=== PATIENT | male | born 1990 | race African-American/Black ===

== ENCOUNTER 2016-12-23 07:31 | Emergency (ER) | payer OTHER ==
[~2016-12-23] VITALS: Ht 188 cm; Wt 56.4 kg
[~2016-12-23 07:31] MED LIST: ACCU-CHEK SMAR1 EACH MC; ASPIR-TRIN325 M1 PO; EASY TOUCH INS MC; INSULIN SYRING1 EA30 MC; LANTUS 10100 UNITS/ SC; Milk Of Magnesia,MOM PO; NOVOLOG 10100 UNITS/ SC; OxyCODONE PO; Senokot,Sennagen PO
[2016-12-23] MEDS ORDERED: DELTASONE20 M1 PO (08:08)
[2016-12-23] MEDS ORDERED: LIDODERM 5% P1 PATCH TD (08:08)
[2016-12-23] MEDS ORDERED: BACLOFEN10 MG PO (08:08)
[2016-12-23 08:35] VITALS: BP 122/76
== END 2016-12-23 08:36 | disposition home or self-care (01) ==
LOC: EME 07:31
DX: M54.5 Low back pain (principal); W10.9XXA Fall (on) (from) unspecified stairs and steps, initial encounter; Y92.008 Other place in unspecified non-institutional (private) residence as the place of occurrence of the external cause; E10.8 Type 1 diabetes mellitus with unspecified complications; J45.909 Unspecified asthma, uncomplicated; Z72.0 Tobacco use
CPT/HCPCS: 99281; 99284

== ENCOUNTER 2017-01-10 06:22 | Emergency (ER) | payer OTHER ==
[~2017-01-10] VITALS: Ht 188 cm; Wt 58.7 kg
[~2017-01-10 06:22] MED LIST changes: +BACLOFEN10 MG PO; +DELTASONE20 M1 PO; +LIDODERM 5% P1 PATCH TD
[2017-01-10 07:50] LABS: EOSINOPHIL (%) 4.8 % (0-5); EOSINOPHIL COUNT 0.2 K/uL (0-0.3); HEMATOCRIT 43.1 % (38.0-50.0); IMMATURE GRANULOCYTE (%) 0.2 % (0.0-0.7); INSTRUMENT ABS NEUTROPHIL CT 2.5 K/uL; LYMPHOCYTE COUNT 1.7 K/uL (1.0-2.8); MCH 28.3 PG (29.0-34.0); MCHC 31.6 G/DL (30.0-36.0); MCV 89.8 FL (86-99); MEAN PLAT.VOLUME 9.6 uM^3 (9.0-12.4); MONOCYTE (%) 7.1 % (3-12); MONOCYTE COUNT 0.3 K/uL (0-0.8); NEUTROPHIL (%) 51.6 % (45-76); NEUTROPHIL COUNT 2.5 K/uL (1.8-6.4); PLATELET COUNT 289 K/uL (156-360); RBC DIS.WIDTH-CV 12.5 % (11.8-14.6); RBC DIS.WIDTH-SD 41.1 % (39-53); WHITE BLOOD COUNT 4.8 K/uL (4.1-10.2)
[2017-01-10 08:26] LABS: ANION GAP 4 MEQ/L (2-14); CHLORIDE 109 MEQ/L (99-109); POTASSIUM 4.7 MEQ/L (3.7-5.4); SAMPLE HEMOLYSIS CHECK 1; SAMPLE ICTERIC CHECK 0; SAMPLE LIPEMIA CHECK 0; SODIUM 141 MEQ/L (136-147)
[2017-01-10 08:31] LABS: GFR ESTIMATE (CALCULATED) > 59 mL/min/; GLUCOSE 153 mg/dL (70-99); UREA NITROGEN (BUN) 11 mg/dL (9-23)
[2017-01-10 09:05] LABS: BILIRUBIN NEGATIVE; BLOOD NEGATIVE; COLOR YELLOW ((YELLOW)); GLUCOSE (STRIP) NEGATIVE; KETONES NEGATIVE; LEUKOCYTES NEGATIVE; NITRITE NEGATIVE; PROTEIN (STRIP) NEGATIVE; SPECIFIC GRAVITY 1.015 (1.000-1.030); UROBILINOGEN 0.2 MG/DL (0.2-1.0)
[2017-01-10 09:06] LABS: ADD MIUA? NO
[2017-01-10] MEDS ORDERED: FLEXERIL10 MG PO (11:43)
[2017-01-10] MEDS ORDERED: PERCOCET 5/31 TABLET PO (11:43)
[2017-01-10 11:53] VITALS: BP 151/102
== END 2017-01-10 11:54 | disposition home or self-care (01) ==
LOC: EME 06:22
PROVIDERS: Emergency Medicine
DX: M54.5 Low back pain (principal); E11.9 Type 2 diabetes mellitus without complications; Z79.4 Long term (current) use of insulin
CPT/HCPCS: 72100; 80048; 81003; 85025; 99281; 99283

== ENCOUNTER 2017-10-29 04:31 | Emergency (ER) | payer OTHER ==
[~2017-10-29] VITALS: Ht 188 cm; Wt 61.6 kg
[~2017-10-29 04:31] MED LIST changes: +FLEXERIL10 MG PO; +PERCOCET 5/31 TABLET PO
[2017-10-29] MEDS ORDERED: PERCOCET 5/31 TABLET PO (04:59)
[2017-10-29] MEDS ORDERED: FLEXERIL10 MG PO (04:59)
[2017-10-29 05:03] VITALS: BP 138/105
== END 2017-10-29 05:19 | disposition home or self-care (01) ==
LOC: EME 04:31
DX: M54.42 Lumbago with sciatica, left side (principal); M54.41 Lumbago with sciatica, right side; J45.909 Unspecified asthma, uncomplicated; E11.9 Type 2 diabetes mellitus without complications; Z79.4 Long term (current) use of insulin; F17.200 Nicotine dependence, unspecified, uncomplicated
CPT/HCPCS: 99281; 99283

== ENCOUNTER 2017-11-16 16:00 | Emergency (ER) | payer OTHER ==
[~2017-11-16] VITALS: Ht 188 cm; Wt 79.5 kg
[2017-11-16 16:26] VITALS: BP 131/82
== END 2017-11-16 18:20 | disposition left against medical advice (07) ==
LOC: EME 16:00
DX: M54.5 Low back pain (principal); M79.604 Pain in right leg; M79.605 Pain in left leg; Z53.21 Procedure and treatment not carried out due to patient leaving prior to being seen by health care provider

== ENCOUNTER 2017-11-18 04:36 | Emergency (ER) | payer OTHER ==
[~2017-11-18] VITALS: Ht 188 cm; Wt 62.6 kg
[2017-11-18] MEDS ORDERED: ROBAXIN750 MG PO (05:44)
[2017-11-18] MEDS ORDERED: ULTRAM50 MG PO (05:44)
[2017-11-18 06:02] VITALS: BP 138/96
== END 2017-11-18 06:04 | disposition home or self-care (01) ==
LOC: EME 04:36
DX: M54.5 Low back pain (principal); M79.604 Pain in right leg; M79.605 Pain in left leg; E11.40 Type 2 diabetes mellitus with diabetic neuropathy, unspecified; Z79.4 Long term (current) use of insulin; F17.200 Nicotine dependence, unspecified, uncomplicated
CPT/HCPCS: 99281; 99284

== ENCOUNTER 2018-02-05 20:00 | Emergency (ER) | payer OTHER ==
[~2018-02-05] VITALS: Ht 188 cm; Wt 59.4 kg
[~2018-02-05 20:00] MED LIST changes: +ROBAXIN750 MG PO; +ULTRAM50 MG PO
[2018-02-05 20:02] VITALS: BP 140/92
[2018-02-05] MEDS ORDERED: NEURONTIN600 MG PO (20:19)
[2018-02-05] MEDS ORDERED: ROBAXIN750 MG PO (20:19)
[2018-02-05] MEDS ORDERED: ENDOCET 5-3251 EACH PO (20:19)
== END 2018-02-05 20:29 | disposition home or self-care (01) ==
LOC: EME 20:00
DX: M54.5 Low back pain (principal); G89.29 Other chronic pain; Z76.0 Encounter for issue of repeat prescription; E11.40 Type 2 diabetes mellitus with diabetic neuropathy, unspecified; Z79.4 Long term (current) use of insulin
CPT/HCPCS: 99281; 99283

== ENCOUNTER 2018-02-25 01:27 | Emergency (ER) | payer OTHER ==
[~2018-02-25] VITALS: Ht 188 cm; Wt 56.8 kg
[~2018-02-25 01:27] MED LIST changes: +ENDOCET 5-3251 EACH PO; +NEURONTIN600 MG PO
[2018-02-25 03:17] VITALS: BP 138/97
== END 2018-02-25 03:20 | disposition left against medical advice (07) ==
LOC: EME 01:27
DX: E10.65 Type 1 diabetes mellitus with hyperglycemia (principal); Z79.4 Long term (current) use of insulin; J45.909 Unspecified asthma, uncomplicated; F17.200 Nicotine dependence, unspecified, uncomplicated; E10.40 Type 1 diabetes mellitus with diabetic neuropathy, unspecified
CPT/HCPCS: 80053; 81003; 82803; 82948; 83690; 85027

== ENCOUNTER 2018-02-28 10:13 | Emergency (ER) | payer OTHER ==
[~2018-02-28] VITALS: Ht 190.5 cm; Wt 55.9 kg
[2018-02-28 10:15] VITALS: BP 125/93
[2018-02-28 11:05] LABS: BASOPHIL (%) 0.4 % (0-1); EOSINOPHIL (%) 0.6 % (0-5); EOSINOPHIL COUNT 0.1 K/uL (0-0.3); HEMATOCRIT 41.3 % (38.0-50.0); IMMATURE GRANULOCYTE (%) 0.6 % (0.0-0.7); LYMPHOCYTE (%) 15.4 % (15-42); LYMPHOCYTE COUNT 1.5 K/uL (1.0-2.8); MCH 29.2 PG (29.0-34.0); MCHC 33.9 G/DL (30.0-36.0); MONOCYTE (%) 4.8 % (3-12); MONOCYTE COUNT 0.5 K/uL (0-0.8); NEUTROPHIL (%) 78.2 % (45-76); NEUTROPHIL COUNT 7.8 K/uL (1.8-6.4); PLATELET COUNT 319 K/uL (156-360); RBC DIS.WIDTH-CV 12.6 % (11.8-14.6); RBC DIS.WIDTH-SD 39.5 % (39-53)
[2018-02-28 11:06] LABS: CARBON DIOXIDE (BICARBONATE) 24.6 MEQ/L (20-31)
[2018-02-28 11:16] LABS: CHLORIDE 105 mEq/L (99-109); POTASSIUM 4.6 mEq/L (3.7-5.4); SODIUM 134 mEq/L (136-147)
[2018-02-28 11:19] LABS: GLUCOSE 474 mg/dL (70-99)
[2018-02-28 11:22] LABS: CREATININE 1.3 mg/dL (0.6-1.3); GFR ESTIMATE (CALCULATED) > 59 mL/min/ (58.99-99999)
[2018-02-28 11:23] LABS: UREA NITROGEN (BUN) 22 mg/dL (9-23)
[2018-02-28 12:11] LABS: APPEARANCE CLEAR ((CLEAR)); BILIRUBIN NEGATIVE; BLOOD NEGATIVE; COLOR YELLOW ((YELLOW)); GLUCOSE (STRIP) >=500; KETONES 20; LEUKOCYTES NEGATIVE; NITRITE NEGATIVE; PROTEIN (STRIP) NEGATIVE; SPECIFIC GRAVITY 1.031 (1.000-1.030); UROBILINOGEN 0.2 MG/DL (0.2-1.0)
[2018-02-28 12:30] LABS: COMMENTS - BLOOD GASES A+C+; DEVICE RA; SITE RR; TOTAL RESP RATE 12 resp/min
[2018-02-28 12:31] LABS: PCO2 34 mm Hg (35-45); PO2 107 mm Hg (80-100); pH 7.35 (7.35-7.45)
[2018-02-28 12:32] LABS: BICARBONATE 18.8 mEq/L (22-26); CARBOXY HGB 2.9 % (0-5); METHEMOGLOBIN 0.6 % (0-1.5)
[2018-02-28] MEDS ORDERED: ROBAXIN750 MG PO (12:44)
[2018-02-28] MEDS ORDERED: NEURONTIN600 MG PO (12:45)
[2018-02-28] MEDS ORDERED: TYLENOL EXTRA500 MG PO (12:46)
== END 2018-02-28 15:09 | disposition left against medical advice (07) ==
LOC: EME 10:13 → EDOF 13:04 → EME 13:04 → EDOF 13:04 → ENRESERV 13:05 → CANRESERV 13:16 → EME 15:09
PROVIDERS: Emergency Medicine; Internal Medicine
DX: E11.65 Type 2 diabetes mellitus with hyperglycemia (principal); T38.3X6A Underdosing of insulin and oral hypoglycemic [antidiabetic] drugs, initial encounter; Z91.128 Patient's intentional underdosing of medication regimen for other reason; J45.909 Unspecified asthma, uncomplicated; F17.200 Nicotine dependence, unspecified, uncomplicated
CPT/HCPCS: 36600; 71045; 80048; 81003; 82010; 82803; 82948; 85025; 99281; 99284; J7030